=== PATIENT | male | born 1960 | race Hispanic/Latino ===

== ENCOUNTER 2018-05-23 18:57 | Inpatient (IN) | payer OTHER ==
[~2018-05-23] VITALS: Ht 162.6 cm; Wt 59.0 kg
[2018-05-23 20:52] LABS: BASOPHILS # (AUTO) 0.1 (0.0-0.1); BASOPHILS % 0.4 % (0.0-1.0); EOSINOPHILS # (AUTO) 0.1 (0.0-0.4); HEMATOCRIT 37.3 % (38.2-49.6); LYMPHOCYTES # (AUTO) 1.9 (1.0-3.2); LYMPHOCYTES % 13.2 % (18.0-39.1); MEAN CORPUSCULAR HEMOGLOBIN 29.4 pg (28-32); MEAN CORPUSCULAR HGB CONC 34.9 g/dL (31-35); MEAN CORPUSCULAR VOLUME 84.4 fL (81-99); MONOCYTES # (AUTO) 1.4 (0.2-0.8); MONOCYTES % 9.8 % (4.4-11.3); NEUTROPHILS # (AUTO) 10.6 (2.1-6.9); NEUTROPHILS % 75.1 % (38.7-80.0); PLATELET COUNT 349 x10e3/uL (140-360); RED BLOOD COUNT 4.42 x10e6/uL (4.3-5.7); RED CELL DISTRIBUTION WIDTH 11.9 % (11.7-14.4)
[2018-05-23 21:07] LABS: BILIRUBIN,URINE NEGATIVE (NEGATIVE); CLARITY,URINE CLEAR (CLEAR); COLOR,URINE YELLOW (YELLOW); KETONES,URINE NEGATIVE (NEGATIVE); LEUKOCYTE ESTERASE ,URINE NEGATIVE (NEGATIVE); NITRITE,URINE NEGATIVE (NEGATIVE); PROTEIN,URINE DIPSTICK NEGATIVE (NEGATIVE); URINE UROBILINOGEN 0.2 mg/dL (0.2 - 1)
--- NOTE | 2018-05-23 21:09 | Diagnostic Imaging Report ---
EXAM: CHEST 2 VIEWS, PA and lateral INDICATION: Pain in chest earlier at 1430 hours, fever for 5 days, sepsis COMPARISON: None FINDINGS: LINES/TUBES: None LUNGS: No consolidations or edema. PLEURA: No effusions or pneumothorax. HEART AND MEDIASTINUM: Normal size and contour. BONES AND SOFT TISSUES: No acute findings. IMPRESSION: No evidence of pneumonia. Signed by: Dr. Donna Tapia M.D. on 05/23/2018 9:06 PM
[2018-05-23 21:15] LABS: INR 1.11; PARTIAL THROMBOPLASTIN TIME 30.4 seconds (23.8-35.5); PROTHROMBIN TIME 13.5 seconds (11.9-14.5)
[2018-05-23 21:19] LABS: ALANINE AMINOTRANSFERASE 102 IU/L (0-55); ALBUMIN 3.3 g/dL (3.5-5.0); ALBUMIN/GLOBULIN RATIO 0.8 (0.8-2.0); ALKALINE PHOSPHATASE 213 IU/L (40-150); ANION GAP 15.7 mmol/L (8-16); BLOOD UREA NITROGEN 6 mg/dL (7-26); BUN/CREATININE RATIO 8 (6-25); CALCIUM 9.5 mg/dL (8.4-10.2); CARBON DIOXIDE 22 mmol/L (22-29); CHLORIDE 97 mmol/L (98-107); CREATININE, SERUM 0.72 mg/dL (0.72-1.25); EST GLOMERULAR FILTRATION RATE > 60 ML/MIN (60-); GLUCOSE 98 mg/dL (74-118); POTASSIUM 3.7 mmol/L (3.5-5.1); SODIUM 131 mmol/L (136-145)
[2018-05-23 21:42] LABS: AMYLASE 57 U/L (25-125); CREATINE KINASE 173 IU/L (30-200); LIPASE 19 U/L (8-78)
--- NOTE | 2018-05-23 22:55 | Diagnostic Imaging Report ---
EXAM: US GALLBLADDER INDICATION: Abdominal pain, fever COMPARISON: None TECHNIQUE: Transverse and longitudinal sonographic images of the right upper abdomen were obtained. FINDINGS: LIVER: 14.9 cm in the right midclavicular line. Heterogeneous echotexture with possible 5 cm mass in the right lobe of the liver and 3.1 cm mass in the left lobe of the liver. Main Portal Vein: Normal size with hepatopetal flow. GALLBLADDER: No gallstones. Possible wall thickening. Negative sonographic Byrnes's sign. BILE DUCTS: No intra nor extra-hepatic dilation. Common bile duct measures 0.5 cm. PANCREAS: Visualized portions are normal. RIGHT KIDNEY: 11.2 cm in length Echogenicity: Normal Collecting System: No hydronephrosis Stones: None Cyst/Mass: None FREE FLUID: None in the right upper quadrant of the abdomen IMPRESSION: Possible liver masses. A CT of the abdomen and pelvis with IV contrast is recommended for further evaluation. Signed by: Dr. Donna Tapia M.D. on 05/23/2018 10:51 PM
[2018-05-23] MEDS ORDERED: VANCOMYCIN 1GM/NS 250 ML 250 ML IV STA (23:09)
[2018-05-23] MEDS ORDERED: PIPER-TAZ 3.375 GM 50 ML IV STA (23:09)
[2018-05-23] MEDS ORDERED: ZITHROMAX TRI-500 MG PO (23:17)
[2018-05-24] VITALS (8 sets, daily range): BP systolic 124–143; BP diastolic 68–78
[2018-05-24] MEDS: PIPER-TAZ 3.375 GM 50 ML IV SCH ×4 (00:14→18:32)
[2018-05-24] MEDS: METRONIDAZOLE 500MG/NS 100ML 100 ML IV SCH ×4 (00:14→18:12)
--- NOTE | 2018-05-24 01:02 | Diagnostic Imaging Report ---
EXAM: CT ABDOMEN AND PELVIS with IV CONTRAST DATE: 05/23/2018 11:04 PM Time stamp on Exam: 008 hours INDICATION: Fever, upper abdominal pain, right upper quadrant, sepsis COMPARISON: Right upper quadrant ultrasound May 23, 2018 TECHNIQUE: The abdomen and pelvis were scanned using a multidetector helical scanner. Coronal and sagittal reformations were obtained. Dose modulation, iterative reconstruction, and/or weight based adjustment of the mA/kV was utilized to reduce the radiation dose to as low as reasonably achievable. Routine protocol performed. IV Contrast: 100 cc Isovue-370 Oral Contrast: Water FINDINGS: LOWER THORAX: No consolidations LIVER: Masses as follows: * Multiloculated cystic mass in the caudate lobe measuring 4 x 4.3 x 4.2 cm * Multiloculated cystic mass in the lateral segment of the left lobe of the liver measuring 3 x 3.5 x 2.4 cm * Irregular cyst measuring 8 mm segment 7 of the right lobe of the liver. BILIARY: The gallbladder is unremarkable. No ductal dilation. SPLEEN: No masses PANCREAS: No masses ADRENALS: No nodules KIDNEYS: Symmetric perfusion. No enhancing masses. No hydronephrosis. Nonspecific scattered cortical hypodensities on the right, possibly related to scarring. GI TRACT: Diverticulosis of the sigmoid colon with wall thickening and without surrounding inflammation. There is a large sigmoid colon diverticula measuring approximately 5 cm. The remainder of the bowel is unremarkable. No evidence of obstruction. Normal appendix. VESSELS: No abdominal aortic aneurysms. The main portal vein is patent. PERITONEUM/RETROPERITONEUM: No free air or fluid LYMPH NODES: No lymphadenopathy. Nonspecific lymph node in the left lower quadrant measuring 6 mm. REPRODUCTIVE ORGANS: The prostate is enlarged to 5.9 cm in transverse diameter. BLADDER: Unremarkable SOFT TISSUES: Unremarkable BONES: No suspicious bone lesions. IMPRESSION: 1, There are multiloculated cystic masses in the caudate lobe (4.2 cm) and lateral segment of the left lobe of the liver (3.5 cm) that would be consistent with abscesses with the provided history of sepsis. Ecchinococcal cysts are not excluded by CT. 2. Thickening of the sigmoid colon in an area of diverticulosis without surrounding inflammation suggests chronic diverticulitis. If clinically appropriate, consider colonoscopy to exclude underlying mass. 3. Prostatomegaly. Signed by: Dr. Donna Tapia M.D. on 05/24/2018 12:58 AM
[2018-05-24] MEDS ORDERED: ONDANSETRON HCL INJ 2 MG/ML VIAL IV PRN (02:45)
[2018-05-24] MEDS ORDERED: MORPHINE SULFATE 2 MG/ML SYR IV PRN (02:45)
[2018-05-24] MEDS: SODIUM CHLORIDE 0.9% 1000ML 1,000 ML IV SCH ×2 (04:20→12:58)
[2018-05-24] MEDS ORDERED: SODIUM CHLORIDE 0.9% 50ML 50 ML ONE (04:50)
[2018-05-24] MEDS ORDERED: IOPAMIDOL 370 MG/ML 200 ML INFUS..BTL INJ ONE (04:50)
--- NOTE | 2018-05-24 15:58 | Consultation ---
DATE OF CONSULTATION: REASON FOR CONSULTATION: Fever and chills. HISTORY OF PRESENT ILLNESS: This patient who is a very pleasant 57-year-old gentleman. Denies any past medical history, comes into the hospital with 4 days' history of fever, chills, abdominal pain right upper quadrant, little bit of nausea. No vomiting, no diarrhea. The patient apparently saw his physician. Did a CT of abdomen and pelvis to the hospital. Patient who is currently lying in bed, complaining of fever and chills. His CT scan, which was done on May 23, 2018, showed multi-calculated cystic mass 4.2 cm consistent with abscesses secondary to sigmoid colon, diverticulosis without diverticulitis. PAST MEDICAL HISTORY: Denies. PAST SURGICAL HISTORY: Denies. ALLERGIES: NKA. SOCIAL HISTORY: There is no smoking, drug abuse, or alcohol abuse. FAMILY HISTORY: Unremarkable. REVIEW OF SYSTEMS HEENT: Negative. PULMONARY: Negative. CARDIAC: Negative. PHYSICAL EXAMINATION GENERAL: Currently, alert and oriented. Does not seem to be in acute distress. VITALS: Stable, currently afebrile. HEENT: Does not appear icteric. NECK: Supple. CHEST: Clear. HEART: S1 and S2. No S3, S4, or murmur. ABDOMEN: Soft. He did have some right upper quadrant discomfort. IMPRESSION AND RECOMMENDATIONS: Liver abscess. We will obtain CT-guided aspiration. We will send culture and sensitivity. Recheck CBC. Recheck Chem panel. We will follow. Job#: [id number] SUB
[2018-05-25] VITALS (7 sets, daily range): BP systolic 122–135; BP diastolic 71–81
[2018-05-25] MEDS ORDERED: SODIUM CHLORIDE 0.9% 50ML 50 ML ONE (00:33)
[2018-05-25] MEDS: PIPER-TAZ 3.375 GM 50 ML IV SCH ×4 (05:15→17:23)
[2018-05-25] MEDS: SODIUM CHLORIDE 0.9% 1000ML 1,000 ML IV SCH ×3 (05:30→21:00)
[2018-05-25] MEDS: METRONIDAZOLE 500MG/NS 100ML 100 ML IV SCH ×5 (05:50→23:42)
[2018-05-25 06:02] LABS: BASOPHILS # (AUTO) 0.1 (0.0-0.1); BASOPHILS % 0.4 % (0.0-1.0); EOSINOPHILS # (AUTO) 0.1 (0.0-0.4); EOSINOPHILS % 0.5 % (0.0-6.0); HEMATOCRIT 39.7 % (38.2-49.6); HEMOGLOBIN 13.5 g/dL (14.0-18.0); LYMPHOCYTES # (AUTO) 1.6 (1.0-3.2); LYMPHOCYTES % 12.3 % (18.0-39.1); MEAN CORPUSCULAR VOLUME 85.2 fL (81-99); MONOCYTES # (AUTO) 1.4 (0.2-0.8); MONOCYTES % 10.7 % (4.4-11.3); NEUTROPHILS # (AUTO) 9.9 (2.1-6.9); NEUTROPHILS % 75.4 % (38.7-80.0); PLATELET COUNT 403 x10e3/uL (140-360); RED BLOOD COUNT 4.66 x10e6/uL (4.3-5.7); RED CELL DISTRIBUTION WIDTH 12.1 % (11.7-14.4)
[2018-05-25 06:28] LABS: ALANINE AMINOTRANSFERASE 78 IU/L (0-55); ALBUMIN 3.2 g/dL (3.5-5.0); ALBUMIN/GLOBULIN RATIO 0.7 (0.8-2.0); ALKALINE PHOSPHATASE 205 IU/L (40-150); ANION GAP 16.4 mmol/L (8-16); BLOOD UREA NITROGEN 10 mg/dL (7-26); BUN/CREATININE RATIO 12 (6-25); CALCIUM 9.6 mg/dL (8.4-10.2); CARBON DIOXIDE 21 mmol/L (22-29); CHLORIDE 104 mmol/L (98-107); CREATININE, SERUM 0.82 mg/dL (0.72-1.25); EST GLOMERULAR FILTRATION RATE > 60 ML/MIN (60-); GLUCOSE 94 mg/dL (74-118); POTASSIUM 3.4 mmol/L (3.5-5.1); SODIUM 138 mmol/L (136-145)
[2018-05-25] MEDS ORDERED: LIDOCAINE HCL 1% LOCAL INJ 20 ML VIAL ONE (09:58)
[2018-05-25] MEDS ORDERED: MORPHINE SULFATE INJ 4 MG/ML INJ IV PRN (11:00)
[2018-05-25] MEDS ORDERED: FENTANYL CITRATE/PF 100MCG/2 ML INJ ONE (13:40)
[2018-05-25] MEDS ORDERED: MIDAZOLAM HCL 2 MG/2 ML VIAL ONE (13:40)
--- NOTE | 2018-05-25 14:43 | Diagnostic Imaging Report ---
Date and Time: 05/25/2018 Procedure: Ultrasound-guided aspiration of a left hepatic abscess telecommunication operator: Dr. Downing Pre-operative diagnosis: Hepatic abscesses Post-operative diagnosis: Hepatic abscesses Conscious Sedation: Versed 0.5 mg and Fentanyl 50 mcg. The patient's heart rate and pulse oximetry were continuously monitored by the interventional radiology nurse. Blood pressure was monitored at 5 minute intervals. Total intraservice time for sedation: 30 minutes Additional Medications: Lidocaine 1% for local anesthesia Contrast used: None Estimated blood loss: Less than 5 cc Blood products administered: None Specimens: 10 cc pus Implants: None Condition at completion: Stable Disposition: Returned to floor DISCUSSION: Informed consent was obtained and documented in the medical record after discussion of risks and benefits. The patient was placed in the supine position on the table. Preliminary sonographic evaluation confirmed presence of a small irregular fluid collection in the deep left hepatic lobe. A suitable percutaneous approach was identified and the overlying skin was prepped and draped in the standard sterile fashion. 1% lidocaine was infiltrated into the skin and subcutaneous tissues for local anesthesia. Then under continuous sonographic guidance an 18-gauge needle was advanced into the fluid collection. Subsequently, a total of 10 cc purulent aspirate was obtained. The needle was removed and postprocedure sonographic imaging showed essentially complete collapse of the collection and no evidence of perihepatic hematoma. A sterile dressing was applied. The patient tolerated the procedure well without immediate complication. FINDINGS: Small irregularly marginated collection in the deep left hepatic lobe compatible with abscess. IMPRESSION: Successful ultrasound-guided aspiration of a small abscess in the deep left hepatic lobe. Purulent aspirate was submitted for Gram stain, aerobic and anaerobic culture, fungal stain and culture, and acid-fast bacilli staining and culture as requested by the referring clinical team. Signed by: Dr. Gilbert Downing M.D. on 05/25/2018 2:39 PM
[2018-05-25] MEDS: ACETAMINOPHEN 325 MG TAB PO PRN (21:21)
[2018-05-26] VITALS (7 sets, daily range): BP systolic 118–132; BP diastolic 71–77
[2018-05-26] MEDS: PIPER-TAZ 3.375 GM 50 ML IV SCH ×5 (00:30→23:21)
[2018-05-26] MEDS: METRONIDAZOLE 500MG/NS 100ML 100 ML IV SCH ×4 (05:23→23:21)
[2018-05-26] MEDS: ACETAMINOPHEN 325 MG TAB PO PRN (06:01)
[2018-05-26] MEDS: SODIUM CHLORIDE 0.9% 1000ML 1,000 ML IV SCH (10:00)
[2018-05-27] VITALS (7 sets, daily range): BP systolic 115–138; BP diastolic 68–84
[2018-05-27] MEDS: SODIUM CHLORIDE 0.9% 1000ML 1,000 ML IV SCH ×2 (01:00→15:06)
[2018-05-27] MEDS: METRONIDAZOLE 500MG/NS 100ML 100 ML IV SCH ×4 (05:20→23:44)
[2018-05-27] MEDS: PIPER-TAZ 3.375 GM 50 ML IV SCH (05:20)
[2018-05-28] VITALS (7 sets, daily range): BP systolic 109–138; BP diastolic 73–95
[2018-05-28] MEDS: SODIUM CHLORIDE 0.9% 1000ML 1,000 ML IV SCH ×2 (03:28→15:35)
[2018-05-28 05:26] LABS: BASOPHILS # (AUTO) 0.1 (0.0-0.1); BASOPHILS % 0.4 % (0.0-1.0); EOSINOPHILS # (AUTO) 0.3 (0.0-0.4); EOSINOPHILS % 2.1 % (0.0-6.0); HEMATOCRIT 36.5 % (38.2-49.6); HEMOGLOBIN 12.5 g/dL (14.0-18.0); LYMPHOCYTES # (AUTO) 2.1 (1.0-3.2); LYMPHOCYTES % 17.7 % (18.0-39.1); MEAN CORPUSCULAR HEMOGLOBIN 29.1 pg (28-32); MEAN CORPUSCULAR HGB CONC 34.2 g/dL (31-35); MEAN CORPUSCULAR VOLUME 84.9 fL (81-99); MONOCYTES # (AUTO) 0.8 (0.2-0.8); MONOCYTES % 6.8 % (4.4-11.3); NEUTROPHILS # (AUTO) 8.6 (2.1-6.9); PLATELET COUNT 468 x10e3/uL (140-360); RED CELL DISTRIBUTION WIDTH 12.1 % (11.7-14.4)
[2018-05-28] MEDS: METRONIDAZOLE 500MG/NS 100ML 100 ML IV SCH ×4 (05:58→23:54)
[2018-05-28 06:54] LABS: EOSINOPHILS % (MANUAL) 1 % (0-7); LYMPHOCYTES % (MANUAL) 19 % (19-48); METAMYELOCYTES % (MANUAL) 1 % (0-0); MONOCYTES % (MANUAL) 2 % (3.4-9.0); NEUTROPHILS % (MANUAL) 70 % (40-74)
[2018-05-28 06:55] LABS: PLATELET ESTIMATE ADEQUATE; PLATELET MORPHOLOGY COMMENT FEW LARGE; RBC MORPHOLOGY COMMENT NORMAL
[2018-05-28] MEDS: CEFTRIAXONE SOD 2 GM VIAL IV SCH (08:59)
[2018-05-29] VITALS (8 sets, daily range): BP systolic 112–128; BP diastolic 68–81
[2018-05-29] MEDS: SODIUM CHLORIDE 0.9% 1000ML 1,000 ML IV SCH ×2 (03:19→14:45)
[2018-05-29] MEDS: METRONIDAZOLE 500MG/NS 100ML 100 ML IV SCH ×4 (05:16→23:31)
[2018-05-29 05:41] LABS: BASOPHILS # (AUTO) 0.1 (0.0-0.1); BASOPHILS % 0.5 % (0.0-1.0); EOSINOPHILS # (AUTO) 0.3 (0.0-0.4); EOSINOPHILS % 2.2 % (0.0-6.0); LYMPHOCYTES # (AUTO) 2.6 (1.0-3.2); LYMPHOCYTES % 22.7 % (18.0-39.1); MEAN CORPUSCULAR HEMOGLOBIN 29.4 pg (28-32); MEAN CORPUSCULAR HGB CONC 34.1 g/dL (31-35); MONOCYTES # (AUTO) 0.6 (0.2-0.8); MONOCYTES % 5.6 % (4.4-11.3); NEUTROPHILS # (AUTO) 7.8 (2.1-6.9); PLATELET COUNT 579 x10e3/uL (140-360); RED BLOOD COUNT 4.77 x10e6/uL (4.3-5.7)
[2018-05-29] MEDS: CEFTRIAXONE SOD 2 GM VIAL IV SCH (08:57)
[2018-05-30] VITALS (8 sets, daily range): BP systolic 116–130; BP diastolic 72–88
[2018-05-30] MEDS: SODIUM CHLORIDE 0.9% 1000ML 1,000 ML IV SCH ×3 (02:54→16:40)
[2018-05-30] MEDS: METRONIDAZOLE 500MG/NS 100ML 100 ML IV SCH ×4 (05:12→23:31)
[2018-05-30] MEDS: CEFTRIAXONE SOD 2 GM VIAL IV SCH (09:08)
[2018-05-31] VITALS: BP 121/70
[2018-05-31] MEDS ORDERED: PANTOPRAZOLE 40 MG 10ML VIAL IV STA (00:01)
[2018-05-31 04:00] VITALS: BP 119/79
[2018-05-31] MEDS: SODIUM CHLORIDE 0.9% 1000ML 1,000 ML IV SCH (04:21)
[2018-05-31 05:46] LABS: BASOPHILS # (AUTO) 0.1 (0.0-0.1); BASOPHILS % 0.6 % (0.0-1.0); EOSINOPHILS # (AUTO) 0.2 (0.0-0.4); EOSINOPHILS % 1.8 % (0.0-6.0); HEMATOCRIT 38.6 % (38.2-49.6); HEMOGLOBIN 13.1 g/dL (14.0-18.0); LYMPHOCYTES # (AUTO) 2.2 (1.0-3.2); LYMPHOCYTES % 20.8 % (18.0-39.1); MEAN CORPUSCULAR HEMOGLOBIN 28.9 pg (28-32); MEAN CORPUSCULAR HGB CONC 33.9 g/dL (31-35); MONOCYTES # (AUTO) 0.5 (0.2-0.8); MONOCYTES % 4.9 % (4.4-11.3); NEUTROPHILS # (AUTO) 7.4 (2.1-6.9); NEUTROPHILS % 70.9 % (38.7-80.0); PLATELET COUNT 615 x10e3/uL (140-360); RED BLOOD COUNT 4.54 x10e6/uL (4.3-5.7)
[2018-05-31 07:48] VITALS: BP 117/76
[2018-05-31] MEDS ORDERED: PANTOPRAZOLE 40 MG 10ML VIAL IV SCH (09:00)
[2018-05-31 09:20] VITALS: BP 117/76
[2018-05-31] MEDS: CEFTRIAXONE SOD 2 GM VIAL IV SCH (09:20)
[2018-05-31 11:47] VITALS: BP 134/77
[2018-05-31] MEDS ORDERED: LEVAQUIN500 MG PO (14:00)
== END 2018-05-31 14:51 | disposition home or self-care (01) | DRG 871 ==
LOC: ER 18:57 → ERHOLD 05-24 02:43 → MED/SURG3 05-24 03:47
PROC: 0F923ZX Drainage of Left Lobe Liver, Percutaneous Approach, Diagnostic (ICD-10-PCS; principal; 2018-05-25)
DX: A40.8 Other streptococcal sepsis (principal); K75.0 Abscess of liver; K57.32 Diverticulitis of large intestine without perforation or abscess without bleeding; E87.6 Hypokalemia
CPT/HCPCS: 36415; 49405; 49406; 71046; 74177; 74470; 76705; 80053; 81001; 82150; 82270; 82550; 82553; 83605; 83690; 84484; 85025; 85610; 85730; 87040; 87070; 87071; 87075; 87102; 87116; 87205; 87206; 93005; 96361; 99152; 99284; C1729; J0696; J2001; J2250; J2543; J3370; J7030; Q9967

== ENCOUNTER → 2018-06-23 | Outpatient (CLI) | payer OTHER ==
[~2018-06-23] MED LIST: LEVAQUIN500 MG PO; ZITHROMAX TRI-500 MG PO
--- NOTE | 2018-06-23 09:22 | Diagnostic Imaging Report ---
PROCEDURE:US LIVER COMPARISON:CT Abdomen/Pelvis 05/24/18 and RUQ abdominal ultrasound 05/23/18. INDICATIONS:F/U ON SEPT PROCEDURE; ABSCESS OF LIVER TECHNIQUE: Gibson-scale and color doppler transverse and longitudinal images of the right upper quadrant of the abdomen were obtained. FINDINGS: Liver: Measures 12.7 cm in right mid-clavicular line. Heterogeneous echogenicity. In the caudate lobe, there is a 4.4 x 3.6 x 3.6 cm cystic area with internal debris and septation and no Doppler flow, corresponding to the lesion seen on prior CT. The lesion is similar in size compared to the prior CT. The additional left lobe cystic collection has resolved post drainage. Main portal vein: Measures 0.8 cm, hepatopetal flow. Gallbladder: Unremarkable. No evidence of stone. Negative reported sonographic Byrnes's sign. Common Bile Duct: 0.3 cm Sonographic Byrnes's sign: Negative Right kidney: Measures 11 cm. Normal echogenicity. No solid masses or hydronephrosis. Pancreas: The visualized portions are unremarkable. Inferior vena cava: Patent Aorta: Within normal limits Ascites: None in the right upper quadrant of the abdomen. CONCLUSION: Persistent 4.4 cm cystic lesion in the caudate lobe, similar in size to the prior CT, consistent with reported history of abscess. Left hepatic lobe collection has resolved status post drainage. Dictated by: ROLANDO MIKE M.D. on 06/23/2018 at 9:30 Electronically approved by: ROLANDO MIKE M.D. on 06/23/2018 at 9:30
== END ==
LOC: US 07:28
DX: R10.9 Unspecified abdominal pain (principal)
CPT/HCPCS: 76705

== ENCOUNTER 2018-07-02 10:52 | Emergency (ER) | payer OTHER ==
[~2018-07-02] VITALS: Ht 162.6 cm; Wt 68.5 kg
[2018-07-02 12:02] LABS: BASOPHILS % 0.3 % (0.0-1.0); EOSINOPHILS # (AUTO) 0.1 (0.0-0.4); EOSINOPHILS % 0.7 % (0.0-6.0); HEMATOCRIT 41.5 % (38.2-49.6); HEMOGLOBIN 14.3 g/dL (14.0-18.0); LYMPHOCYTES # (AUTO) 1.6 (1.0-3.2); LYMPHOCYTES % 13.5 % (18.0-39.1); MEAN CORPUSCULAR HEMOGLOBIN 29.2 pg (28-32); MEAN CORPUSCULAR HGB CONC 34.5 g/dL (31-35); MEAN CORPUSCULAR VOLUME 84.9 fL (81-99); MONOCYTES # (AUTO) 0.5 (0.2-0.8); MONOCYTES % 4.4 % (4.4-11.3); NEUTROPHILS # (AUTO) 9.7 (2.1-6.9); NEUTROPHILS % 80.8 % (38.7-80.0); PLATELET COUNT 281 x10e3/uL (140-360); RED BLOOD COUNT 4.89 x10e6/uL (4.3-5.7)
[2018-07-02 12:05] LABS: CLARITY,URINE CLEAR (CLEAR); COLOR,URINE YELLOW (YELLOW); LEUKOCYTE ESTERASE ,URINE NEGATIVE (NEGATIVE); NITRITE,URINE NEGATIVE (NEGATIVE)
[2018-07-02 12:06] LABS: BILIRUBIN,URINE NEGATIVE (NEGATIVE); KETONES,URINE NEGATIVE (NEGATIVE); PROTEIN,URINE DIPSTICK NEGATIVE (NEGATIVE); URINE UROBILINOGEN 0.2 mg/dL (0.2 - 1)
[2018-07-02 12:08] LABS: BACTERIA,URINE RARE /HPF; EPITHELIAL CELLS,URINE RARE /LPF; RBC,URINE 0-5 /HPF (0-5); WBC,URINE (MAN) 0-5 /HPF (0-5)
[2018-07-02 12:23] LABS: ALANINE AMINOTRANSFERASE 26 IU/L (0-55); ALBUMIN 4.4 g/dL (3.5-5.0); ALBUMIN/GLOBULIN RATIO 1.2 (0.8-2.0); ALKALINE PHOSPHATASE 85 IU/L (40-150); AMYLASE 73 U/L (25-125); ANION GAP 13.5 mmol/L (8-16); BLOOD UREA NITROGEN 8 mg/dL (7-26); BUN/CREATININE RATIO 10 (6-25); CALCIUM 9.8 mg/dL (8.4-10.2); CARBON DIOXIDE 26 mmol/L (22-29); CHLORIDE 100 mmol/L (98-107); CREATININE, SERUM 0.78 mg/dL (0.72-1.25); EST GLOMERULAR FILTRATION RATE > 60 ML/MIN (60-); GLUCOSE 93 mg/dL (74-118); LIPASE 18 U/L (8-78); POTASSIUM 3.5 mmol/L (3.5-5.1); SODIUM 136 mmol/L (136-145)
--- NOTE | 2018-07-02 14:01 | Diagnostic Imaging Report ---
EXAMINATION: CT of the abdomen and pelvis with contrast. TECHNIQUE: Spiral CT images of the abdomen and pelvis were performed from the lung bases to the lesser trochanters after the intravenous administration of 100 cc of Isovue 370 and the oral administration of water. Coronal and sagittal reformatted images were obtained. COMPARISON: None. CLINICAL HISTORY:CT abdomen and pelvis 05/24/2018 DISCUSSION: ABDOMEN/PELVIS: LOWER THORAX:Unremarkable. HEPATOBILIARY: Normal hepatic size and contour. * Ill-defined 1.8 x 1.5 cm mildly hypodense solid appearing nonenhancing lesion in hepatic segment III (series 2, image 19) in area of former 3.7 x 2.7 cm abscess. * Somewhat ill-defined 3.0 x 2.8 cm slightly hypodense nonenhancing lesion in the caudate lobe, in area of former 4.5 x 4.7 cm abscess. The previously visualized 0.8 cm hypodense lesion in segment VII, likely representing a small abscess is not seen in the current exam, resolved. No new hepatic lesions. No intra or extrahepatic biliary ductal dilation. GALLBLADDER: No radio-opaque stones or sludge. No wall thickening. SPLEEN: No splenomegaly. PANCREAS: No focal masses or ductal dilatation. ADRENALS: No adrenal nodules. KIDNEYS/URETERS: No hydronephrosis, stones, or solid mass lesions. PELVIC ORGANS/BLADDER: Mild circumferential bladder wall thickening. Enlarged prostate, which measures approximately 5.0 x 4.0 x 5.5 cm (estimated volume 57 mL) PERITONEUM/RETROPERITONEUM: No free air or fluid. LYMPH NODES: No intra-abdominal, retroperitoneal, pelvic or inguinal lymphadenopathy. VESSELS: The celiac trunk,superior and inferior mesenteric and bilateral renal arteries are patent The portal, superior mesenteric and splenic veins are patent. 2 accessory right renal arteries are identified. GI TRACT: No bowel dilation or evidence of obstruction. Appendix is well identified and normal in caliber. Descending and sigmoid colon diverticulosis, without diverticulitis. BONES AND SOFT TISSUE: No aggressive lytic lesions. No soft tissue abnormalities. IMPRESSION: 1. Ill-defined mildly hypodense lesions in segment III and I (caudate), likely representing chronic residual changes after previously visualized abscesses. No suspicious enhancement or CT evidence of new abscess., 2. A previously visualized 0.8 cm hypodense lesion in segment VII, likely a small abscess, has resolved. 3. Mild circumferential bladder wall thickening, likely reflecting bladder outlet obstruction from enlarged prostate. 4. Descending and sigmoid colon diverticulosis, without diverticulitis. Signed by: Dr. Diogo Gibson M.D. on 07/02/2018 1:58 PM
[2018-07-02 16:25] VITALS: BP 129/84
[2018-07-02] MEDS ORDERED: SODIUM CHLORIDE 0.9% 50ML 50 ML ONE (17:09)
[2018-07-02] MEDS ORDERED: IOPAMIDOL 370 MG/ML 200 ML INFUS..BTL INJ ONE (17:09)
== END 2018-07-02 14:56 | disposition home or self-care (01) ==
LOC: ER 10:52
DX: R10.11 Right upper quadrant pain (principal); K57.31 Diverticulosis of large intestine without perforation or abscess with bleeding; K76.9 Liver disease, unspecified
CPT/HCPCS: 36415; 74177; 80053; 81001; 82150; 83690; 85025; 99284; Q9967